=== PATIENT | female | born 1980 | race Caucasian/White ===

== ENCOUNTER 2017-01-02 22:58 | Emergency (ER) | payer BC ==
[~2017-01-02] VITALS: Ht 162.6 cm; Wt 74.4 kg
--- NOTE | 2017-01-02 23:58 | NUR ---
MOR, C/O ANXIETY X 3 HRS. "I'VE BEEN STRUGGLING WITH ANXIETY FOR A FEW MONTHS" PT AOX4 RR EVEN AND UNLABORED. NO SOB NOTED. NAD NOTED. NO NVD AT THIS TIME. PT GOWNED AND PLACED ON MONITOR WAITING MD MULLINS.
--- NOTE | 2017-01-03 | NUR ---
LATISHA JEFFREY AT BEDSIDE FOR EVAL.
[2017-01-03] MEDS ORDERED: LORAZEPAM 1 MG TABLET PO ONE (00:30)
--- NOTE | 2017-01-03 00:40 | NUR ---
XRAY AT BEDSIDE
[2017-01-03] MEDS ORDERED: LORAZEPAM 1 MG TABLET ONE (00:45)
--- NOTE | 2017-01-03 01:13 | NUR ---
LATISHA JEFFREY AT BEDSIDE SPEAKING TO PT REGARDING RESULTS.
--- NOTE | 2017-01-03 01:21 | NUR ---
Patient discharged to home in stable condition. Written and verbal after care instructions given. Patient verbalizes understanding of instruction. ambulatory with a steady gait. instructed not to drive .pt verbalize understanding. accompanied by boyfriend
[2017-01-03 01:32] VITALS: BP 138/78
== END 2017-01-03 01:33 | disposition home or self-care (01) ==
LOC: ER 23:03
DX: F41.9 Anxiety disorder, unspecified (principal); Z88.0 Allergy status to penicillin; Z88.5 Allergy status to narcotic agent
CPT/HCPCS: 71010; 93005; 99284; A4606; Z7610

== ENCOUNTER 2017-03-24 19:51 | Emergency (ER) | payer BC ==
[~2017-03-24] VITALS: Ht 162.6 cm; Wt 70.3 kg
[2017-03-24 20:03] VITALS: BP 143/83
--- NOTE | 2017-03-24 21:31 | NUR ---
CALLED PT IN [place], NO RESPONSE
--- NOTE | 2017-03-25 00:45 | NUR ---
CALLED PT IN [place], NO RESPONSE
--- NOTE | 2017-03-25 01:40 | NUR ---
CALLED PT IN [place], NO RESPONSE
== END 2017-03-25 01:39 | disposition left against medical advice (07) ==
LOC: ER 19:54
DX: Z53.21 Procedure and treatment not carried out due to patient leaving prior to being seen by health care provider (principal)
CPT/HCPCS: A4606; Z7610